=== PATIENT | male | born 1980 | race African-American/Black ===

== ENCOUNTER 2017-12-04 17:38 | Emergency (ER) | payer OTHER ==
[~2017-12-04] VITALS: Ht 182.9 cm; Wt 79.4 kg
[2017-12-04] MEDS ORDERED: NAPROSYN500 MG PO (18:47)
[2017-12-04 19:05] VITALS: BP 160/108
== END 2017-12-04 19:07 | disposition home or self-care (01) ==
LOC: M.ERS 17:38
DX: S63.592A Other specified sprain of left wrist, initial encounter (principal); I10 Essential (primary) hypertension; F17.200 Nicotine dependence, unspecified, uncomplicated; W18.39XA Other fall on same level, initial encounter; Y93.89 Activity, other specified; Y92.89 Other specified places as the place of occurrence of the external cause; Y99.8 Other external cause status